=== PATIENT | female | born 1995 | race African-American/Black ===

== ENCOUNTER 2022-09-30 04:19 | Emergency (ER) | payer SELFPAY ==
[2022-09-30] MEDS ORDERED: Ketorolac Tromethamine 30 MG/ML VIAL ONE (05:47)
== END 2022-09-30 05:56 | disposition home or self-care (01) ==
LOC: CSHERS 04:19
DX: M25.521 Pain in right elbow (principal); M71.9 Bursopathy, unspecified
CPT/HCPCS: 96372; J1885